=== PATIENT | male | born 1935 ===

== ENCOUNTER 2020-12-24 19:58 | Observation (INO) | payer OTHER, SELFPAY ==
[2020-12-24 23:37] VITALS: BMI 24.2
[2020-12-25] MEDS ORDERED: Cyclobenzaprine 10 MG TAB PO PRN (02:25)
[2020-12-25] MEDS ORDERED: Ondansetron ODT 4 MG TAB PO PRN (02:25)
[2020-12-25] MEDS ORDERED: Dextrose 5% in Water 1,000 ML IV PRN (02:25)
[2020-12-25] MEDS ORDERED: cloNIDine 0.1 MG TAB PO PRN (02:25)
[2020-12-25] MEDS ORDERED: Lorazepam 0.5 MG TAB PO PRN (02:25)
[2020-12-25] MEDS ORDERED: Ondansetron PF 4 MG/2 ML Vial IVP PRN (02:25)
[2020-12-25] MEDS ORDERED: hydrALAZINE 20 MG/ML VIAL SLOW IVP PRN (02:25)
[2020-12-25] MEDS ORDERED: traMADol HCl 50 MG TAB PO PRN (02:25)
[2020-12-25] MEDS ORDERED: Dextrose 50% Abboject 50 ML SYRINGE SLOW IVP PRN (02:25)
[2020-12-25] MEDS ORDERED: Sodium Chloride 0.9% 1,000 ML IV SCH (02:25)
[2020-12-25] MEDS ORDERED: Acetaminophen 500 MG TAB PO SCH (03:00)
[2020-12-25 07:08] LABS: #Eosinphils 0.6 thou/uL (0.0-0.7); #Lymphocytes 1.5 thou/uL (1.20-3.40); #Monocytes 0.8 thou/uL (0.11-0.59); #Neutrophils 3.7 thou/uL (1.40-6.50); %Basophils 0.4 % (0.0-1.0); %Eosinophils 9.4 % (0.0-10.0); %Monocytes 12.4 % (0.0-10.0); %Neutrophils 54.9 % (42.0-75.0); Hemoglobin 10.4 g/dL (14.0-18.0); Mean Corpuscular HGB CONC 32.9 g/dL (32.0-36.0); Mean Corpuscular Hemoglobin 33.2 pg (27.0-31.0); Mean Platelet Volume 9.7 fL (7.4-10.4); Platelet Count 149 thou/uL (130-400); RBC Distribution Width 13.1 % (11.5-14.5); Red Blood Cell (RBC) Count 3.13 mill/uL (4.70-6.10); White Blood Cell (WBC) Count 6.7 thou/uL (4.8-10.8)
[2020-12-25 07:17] LABS: Phosphorus 3.6 mg/dL (2.3-4.7)
[2020-12-25 08:12] LABS: Anion Gap 12 mmol/L (10-20); BUN (Urea Nitrogen) 41 mg/dL (8.4-25.7); Calc. Creatinine Clearance 28 mL/min (70-130); Calcium 8.5 mg/dL (7.8-10.44); Carbon Dioxide 20 mmol/L (23-31); Chloride 109 mmol/L (98-107); Glucose 98 mg/dL (83-110); Magnesium 2.1 mg/dL (1.6-2.6); Potassium 4.3 mmol/L (3.5-5.1); Sodium 137 mmol/L (136-145)
[2020-12-25] MEDS ORDERED: Famotidine 20 MG TAB PO SCH ×2 (09:00)
[2020-12-25] MEDS ORDERED: Furosemide 40 MG TAB PO SCH (09:00)
[2020-12-25] MEDS ORDERED: Losartan 25 MG TAB PO SCH (09:00)
[2020-12-25] MEDS ORDERED: Ferrous Sulfate 325 MG TAB PO SCH (09:00)
[2020-12-25] MEDS ORDERED: traMADol HCl 50 MG TAB PO SCH ×2 (10:30→21:00)
[2020-12-25 12:57] LABS: SARS-CoV-2 PCR by NAA Not Detected (NotDetected)
[2020-12-25] MEDS: Acetaminophen 500 MG TAB PO SCH ×2 (14:53→18:41)
[2020-12-25 16:45] VITALS: BP 160/70; TEMP 98.1
[2020-12-25] MEDS ORDERED: Rosuvastatin 5 MG TAB PO SCH (21:00)
[2020-12-26] MEDS ORDERED: Gabapentin 100 MG CAP PO SCH (09:00)
== END 2020-12-25 19:00 | disposition home or self-care (01) ==
LOC: SURG A 19:58
PROVIDERS: ADMIT Surgery; ATTEND Surgery
DX: S22.21XA Fracture of manubrium, initial encounter for closed fracture (principal); S52.502A Unspecified fracture of the lower end of left radius, initial encounter for closed fracture; G89.11 Acute pain due to trauma; I25.10 Atherosclerotic heart disease of native coronary artery without angina pectoris; E78.5 Hyperlipidemia, unspecified; M19.90 Unspecified osteoarthritis, unspecified site; I12.9 Hypertensive chronic kidney disease with stage 1 through stage 4 chronic kidney disease, or unspecified chronic kidney disease; N18.4 Chronic kidney disease, stage 4 (severe); M81.0 Age-related osteoporosis without current pathological fracture; K21.9 Gastro-esophageal reflux disease without esophagitis; E78.00 Pure hypercholesterolemia, unspecified; J44.9 Chronic obstructive pulmonary disease, unspecified; Z87.891 Personal history of nicotine dependence; Z79.899 Other long term (current) drug therapy; Z91.041 Radiographic dye allergy status; Z20.822 Contact with and (suspected) exposure to COVID-19; W18.30XA Fall on same level, unspecified, initial encounter
CPT/HCPCS: 36415; 71045; 80048; 83735; 84100; 85025; G0378; J7050; U0003; U0005